=== PATIENT | female | born 1990 | race Two or more races ===

== ENCOUNTER → 2020-04-12 11:14 | Outpatient (CLI) | payer OTHER, MEDICAID, SELFPAY ==
[2020-04-12 10:32] VITALS: BMI 22.0
[2020-04-12 12:33] LABS: Prolactin 35.4 ng/mL; T4 Free Direct 1.42 ng/dL (0.76-1.46); Thyroid Stim Hormone (TSH) 0.09 uIU/mL (0.358-3.74)
== END ==
PROVIDERS: Referring Provider Internal Medicine Endocrinology, Diabetes & Metabolism; Visit Provider Internal Medicine Endocrinology, Diabetes & Metabolism
DX: E06.3 Autoimmune thyroiditis (principal); E03.8 Other specified hypothyroidism; D35.2 Benign neoplasm of pituitary gland
CPT/HCPCS: 36415; 84146; 84439; 84443